=== PATIENT | female | born 1965 | race Caucasian/White ===

== ENCOUNTER 2024-07-10 13:41 | Emergency (ER) | payer SELFPAY ==
[2024-07-10 14:10] VITALS: BP 179/88; PULSE 82; RESP 20; TEMP 37; O2SAT 99; BMI 27.0
[2024-07-10 19:25] VITALS: BP 188/81; PULSE 81; RESP 14; O2SAT 98
--- NOTE | 2024-07-10 21:51 | ED.SKABFB ---
HPI - Skin/Abscess/Foreign Bdy General Chief complaint: Skin/Abscess/Foreign Body Stated complaint: inflammation and pain in left armpit Time Seen by Provider: 07/10/24 21:51 Source: patient Mode of arrival: Ambulatory Limitations: no limitations History of Present Illness HPI narrative: 59-year-old female with a history of insulin dependent diabetes for 45 years medication for glaucoma but no other daily medications. Patient presents with complaint of swelling pain and a bump in her left armpit which has been increasing in size. She states has been painful and warm. Has a little bit of drainage but isn't draining currently. Has not had similar symptoms in the past. She states she does not shave or wax that area. Patient denies any fevers, no nausea or vomiting no other symptoms. She states her blood sugars are sometimes well-controlled but occasionally not she does not appreciate any pattern or new change. Denies any other symptoms. Denies any drug allergies. No regular tobacco use. Related Data Previous Rx's Medication Instructions Recorded doxycycline hyclate 100 mg tablet 100 mg PO BID #20 tabs 07/10/24 Allergies Allergy/AdvReac Type Severity Reaction Status Date / Time No Known Drug Allergies Allergy Verified 07/10/24 22:50 Review of Systems Review of Systems ROS Unobtainable: All systems reviewed & are unremarkable except as noted in HPI and below Patient History Social History Smoking Status: Never smoker Smoking Status: Never smoker Alcohol type: beer Exam Narrative Exam Narrative: GENERAL: Alert and oriented x three, female in mild distress. HEENT: Head normocephalic, atraumatic, EOMI, pupils reactive, face symmetric, moist mucous membranes NECK: Supple, full range of motion CARDIOVASCULAR: Regular rate and rhythm without murmurs, rubs or gallops. RESPIRATORY: Breath sounds equal bilaterally, no wheezes rales or rhonchi. ABDOMEN: Soft, nontender. Normoactive bowel sounds all 4 quadrants. No guarding or rebound, rigidity, no mass : No CVA tenderness EXTREMITIES: Normal range of motion, no clubbing or edema. Neurovascularly intact. Patient has a about a cm erythematous fluctuant area in the left axilla with small nodule of purulent point which appears almost ready to erupt. The area is tender it is warm it is fluctuant. There is no surrounding erythema. There was no other nodularity appreciated. No significant lymphadenopathy appreciated in the axilla. Patient has 2+ radial pulse with otherwise normal movement and no other swelling of her extremity. NEUROLOGICAL: Cranial nerves II through XII grossly intact. Moving all extremities SKIN: Warm, dry, no petechiae, no rashes or lesions. Initial Vital Signs Initial Vital Signs: Vital Signs Temperature 98.6 F 07/10/24 14:10 Pulse Rate 82 07/10/24 14:10 Respiratory Rate 20 07/10/24 14:10 Blood Pressure 179/88 H 07/10/24 14:10 Pulse Oximetry 99 07/10/24 14:10 Oxygen Delivery Method Room Air 07/10/24 14:10 Procedures Abscess I/D I&D #1: Site: upper extremity (Left axilla) Side (if applicable): left Sedation/analgesia: none Local Anesthetic: lidocaine 2% Amount of anesthesia used (mL): 5 Technique: needle aspiration and incised with #11 blade Amount of fluid expressed (mL): 9 Irrigation: Yes Packing used?: none Course Orders Ordered: Discontinued Medications Doxycycline Hyclate (Doxycycline Hyclate 100 Mg Tablet) 100 mg PO NOW ONE Stop: 07/10/24 22:20 Last Admin: 07/10/24 22:43 Dose: 100 mg Documented By: AB Vital Signs Vital signs: Vital Signs - 8 hr 07/10/24 19:25 Pulse Rate 81 Respiratory Rate 14 Blood Pressure 188/81 H Pulse Oximetry 98 MDM - Skin/Abscess/Foreign Bdy MDM Narrative Medical decision making narrative: Patient has what appears to be a simple abscess of her left axilla, she was not had similar symptoms or history of suppurative hidradenitis. It was very fluctuant it appears ready to drain so I and D was performed. Patient was started on oral antibiotics she was insulin-dependent diabetic has not had major issues with skin infections in the past. Verbal consent for patient's I and D she tolerated well. Had purulent fluid out feels much better afterwards. We will start on oral antibiotic. Patient is traveling her cell phone does not work very well so encouraged to call back in the next 3 days to follow up her culture. Discussed return precautions all questions answered. We will give 1st dose of antibiotic here prescription will be sent to [facility] where they are traveling tomorrow. Discharge Plan Departure Patient Disposition: Home Clinical Impression: Abscess of axilla, left Instructions: DI for Skin Abscess Activity Restrictions/Additional Instructions: Follow up for recheck in the next week if it has not completely healed. A culture was sent this typically takes 48-72 hours to result because your cell phone does not work while here you can call the emergency department to follow up your culture results to follow up the results in about 3-4 days Use warm compresses to the affected area for 10-15 minutes, 3-4 times daily. Wound Care: Keep wound(s) clean and dry. Wash daily with soap and water only. Take oral antibiotics until completed prescription sent to [facility] on [facility]. Take once twice daily until completed. This medication can make you more sensitive to the sun so protect your skin with sunscreen and protective clothing while taking it. Please return for fevers, increasing redness, swelling or pain, increasing drainage or other new or concerning changes. Prescriptions: New doxycycline hyclate 100 mg tablet 100 mg PO BID Qty: 20 0RF Stand Alone Forms: Patient Portal/API/Survey
[2024-07-10] MEDS: DOXYCYCLINE HYCLATE 100 MG TABLET PO (22:43)
[2024-07-10 22:53] VITALS: PULSE 82; O2SAT 98
[2024-07-10 22:54] VITALS: BP 186/78; PULSE 82; RESP 16; TEMP 37; O2SAT 99
== END 2024-07-10 22:58 | disposition home or self-care (01) ==
PROVIDERS: Emergency Provider Emergency Medicine
DX: L02.412 Cutaneous abscess of left axilla (principal)
CPT/HCPCS: 10060; 87070; 87075; 87205; 99283